=== PATIENT | male | born 1970 | race African-American/Black ===

== ENCOUNTER 2016-09-27 08:51 | Emergency (ER) | payer MEDICAID ==
[~2016-09-27] VITALS: Ht 165.1 cm; Wt 75.0 kg
[~2016-09-27 08:51] MED LIST: AMLO5TAB4 PO; HYDROCHLOROTHIAZIDE; LISI-167 PO
[2016-09-27] MEDS ORDERED: SODIUM CHLORIDE FLUSH 10ML SYR IVF ONE (09:30)
[2016-09-27 10:28] LABS: BLOOD UREA NITROGEN 16 mg/dL (7-18)
[2016-09-27] MEDS ORDERED: MORPHINE SULFATE 4 MG/ML, 1ML IVPush ONE (10:30)
[2016-09-27] MEDS ORDERED: DIAZEPAM 5 MG/ML, 2ML IV ONE (10:30)
[2016-09-27] MEDS ORDERED: DIAZEPAM 5 MG/ML, 2ML ONE ×2 (10:34→11:21)
[2016-09-27] MEDS ORDERED: MORPHINE SULFATE 4 MG/ML, 1ML ONE (10:35)
[2016-09-27 10:55] LABS: PATH.CAST-FLAG NOT PRESENT; SPERM-FLAG NOT PRESENT; SRC-FLAG NOT PRESENT; XTAL-FLAG NOT PRESENT; YLC-FLAG NOT PRESENT
[2016-09-27] MEDS ORDERED: HYDR12.53 PO (10:55)
[2016-09-27 11:26] VITALS: BP 185/123
== END 2016-09-27 12:38 | disposition home or self-care (01) ==
LOC: ED 10:32
DX: S06.0X9A Concussion with loss of consciousness of unspecified duration, initial encounter (principal); S16.1XXA Strain of muscle, fascia and tendon at neck level, initial encounter; S39.012A Strain of muscle, fascia and tendon of lower back, initial encounter; I25.2 Old myocardial infarction; I10 Essential (primary) hypertension; R79.89 Other specified abnormal findings of blood chemistry; W01.0XXA Fall on same level from slipping, tripping and stumbling without subsequent striking against object, initial encounter; Y93.89 Activity, other specified; Y92.89 Other specified places as the place of occurrence of the external cause; Y99.8 Other external cause status
CPT/HCPCS: 36415; 70450; 72072; 72110; 72125; 80048; 81001; 82040; 85025; 93005; 96374; 96375; 99285; J3360

== ENCOUNTER 2016-12-02 13:44 | Emergency (ER) | payer MEDICAID ==
[~2016-12-02] VITALS: Ht 165.1 cm; Wt 74.7 kg
[~2016-12-02 13:44] MED LIST changes: +HYDR12.53 PO
[2016-12-02 13:45] VITALS: BP 196/159
[2016-12-02] MEDS ORDERED: PROPARACAINE OPHTH 0.5%, 15ML EACHEYE STA (13:59)
[2016-12-02] MEDS ORDERED: FLUORESCEIN OPHTHALMIC 1 MG STRIP ONE (14:02)
[2016-12-02] MEDS ORDERED: PROPARACAINE OPHTH 0.5%, 15ML ONE (14:02)
== END 2016-12-02 14:38 | disposition home or self-care (01) ==
LOC: ED 14:01
DX: S00.83XA Contusion of other part of head, initial encounter (principal); I10 Essential (primary) hypertension; W22.09XA Striking against other stationary object, initial encounter; Y93.H2 Activity, gardening and landscaping; Y92.89 Other specified places as the place of occurrence of the external cause; Y99.8 Other external cause status
CPT/HCPCS: 99283

== ENCOUNTER 2017-01-16 19:35 | Inpatient (IN) | payer MEDICAID ==
[~2017-01-16] VITALS: Ht 165.1 cm; Wt 73.4 kg
[2017-01-16] MEDS ORDERED: NITROGLYCERIN SINGLE TAB 0.4 MG SL PRN (20:00)
[2017-01-16] MEDS ORDERED: SODIUM CHLORIDE FLUSH 10ML SYR IVF ONE ×2 (20:00→20:30)
[2017-01-16] MEDS ORDERED: ASPIRIN 81 MG TABLET CHEW PO ONE (20:00)
[2017-01-16] MEDS ORDERED: NITROGLYCERIN SINGLE TAB 0.4 MG SL ONE (20:24)
[2017-01-16] MEDS ORDERED: ENALAPRILAT 1.25 MG/ML, 2ML ONE (20:24)
[2017-01-16] MEDS ORDERED: NITROGLYCERIN OINT 2%, 1GM TP ONE ×2 (20:24→20:30)
[2017-01-16] MEDS ORDERED: ASPIRIN 81 MG TABLET CHEW ONE ×2 (20:24→21:22)
[2017-01-16] MEDS ORDERED: LABETALOL 5MG/ML, 20ML ONE (20:25)
[2017-01-16] MEDS ORDERED: LABETALOL 5MG/ML, 20ML IVPush ONE (20:30)
[2017-01-16] MEDS ORDERED: ENALAPRILAT 1.25 MG/ML, 2ML IV ONE (20:30)
[2017-01-16 20:40] LABS: ASPARTATE AMINO TRANSFERASE 16 U/L (15-37); BLOOD UREA NITROGEN 21 mg/dL (7-18)
[2017-01-16 20:41] LABS: HEMATOCRIT 51.5 % (39.2-51.8); HEMOGLOBIN 17.2 g/dL (13.7-18.0); WHITE BLOOD COUNT 7.7 x10^3/uL (3.4-10)
[2017-01-16 20:45] LABS: IS PT STATUS REG ER OR PRE ER? YES
[2017-01-16] MEDS ORDERED: ASPIRIN 325 MG TABLET PO ONE (21:30)
[2017-01-16] MEDS ORDERED: AMLO10TA2 PO (21:54)
[2017-01-16] MEDS ORDERED: LORazepam 2 MG/ML, 1ML ONE (22:47)
[2017-01-16] MEDS ORDERED: LORazepam 2 MG/ML, 1ML IVPush ONE (23:00)
[2017-01-16] MEDS ORDERED: ACETAMINOPHEN 325 MG TABLET PO PRN (23:30)
[2017-01-16] MEDS ORDERED: TRAZODONE 50MG TABLET PO PRN (23:30)
[2017-01-16] MEDS ORDERED: DOCUSATE 100 MG CAPSULE PO PRN (23:30)
[2017-01-16] MEDS ORDERED: LABETALOL 5MG/ML, 20ML IVPush PRN (23:30)
[2017-01-16] MEDS ORDERED: ONDANSETRON ODT 4 MG PO PRN (23:30)
[2017-01-16] MEDS: LABETALOL 200 MG TABLET PO SCH (23:48)
[2017-01-16] MEDS: AMLODIPINE 5 MG TABLET PO SCH (23:49)
[2017-01-16] MEDS ORDERED: NICOTINE 21 MG/24 HR PATCH.TD24 ONE (23:53)
[2017-01-16] MEDS: NICOTINE 21 MG/24 HR PATCH.TD24 TD SCH (23:55)
[2017-01-17 00:12] LABS: IS PT STATUS REG ER OR PRE ER? YES
[2017-01-17 05:10] LABS: HEMATOCRIT 45.9 % (39.2-51.8); HEMOGLOBIN 15.5 g/dL (13.7-18.0); WHITE BLOOD COUNT 7.2 x10^3/uL (3.4-10)
[2017-01-17 05:21] LABS: IS PT STATUS REG ER OR PRE ER? YES
[2017-01-17] MEDS: LABETALOL 200 MG TABLET PO SCH (06:00)
[2017-01-17 06:23] LABS: ASPARTATE AMINO TRANSFERASE 21 U/L (15-37); BLOOD UREA NITROGEN 27 mg/dL (7-18)
[2017-01-17] MEDS ORDERED: ONDANSETRON ODT 4 MG ONE (07:06)
[2017-01-17] MEDS ORDERED: PANTOPROZOLE 40MG TABLET PO SCH (07:30)
[2017-01-17 09:23] VITALS: BP 126/81
[2017-01-17] MEDS: HEPARIN 5,000 UNITS/ML, 1ML SQ SCH ×2 (10:48→16:54)
[2017-01-17] MEDS: AMLODIPINE 5 MG TABLET PO SCH ×2 (10:48→23:37)
[2017-01-17] MEDS: SODIUM CHLORIDE 0.9% 1,000 ML IV SCH ×2 (10:48→16:53)
[2017-01-17] MEDS ORDERED: NITROGLYCERIN 0.4 MG/SPRAY SL PRN (11:00)
[2017-01-17] MEDS ORDERED: NITROGLYCERIN 0.4 MG BOTTLE (25 TABS) SL PRN (11:00)
[2017-01-17] MEDS ORDERED: PHARMACY MAY ADJ FOR RENAL FX MC PRN (11:00)
[2017-01-17] MEDS: THIAMINE 100MG TABLET PO SCH (12:03)
[2017-01-17] MEDS: OMEGA-3/FISH OIL CAPSULE PO SCH (12:03)
[2017-01-17] MEDS: LABETALOL 100 MG TABLET PO SCH ×2 (14:36→23:37)
[2017-01-17] MEDS ORDERED: POTASSIUM CHLORIDE 20 MEQ TAB.ER.PRT PO SCH (17:00)
[2017-01-17 19:05] VITALS: BP 141/88
[2017-01-17 19:15] LABS: DAU SCREEN DISCLAIMER
[2017-01-17] MEDS: NICOTINE 21 MG/24 HR PATCH.TD24 TD SCH (23:30)
[2017-01-17 23:35] VITALS: BP 136/92
[2017-01-17] MEDS: ATORVASTATIN 40 MG TABLET PO SCH (23:37)
[2017-01-18 02:00] VITALS: BP 144/88
[2017-01-18] MEDS: HEPARIN 5,000 UNITS/ML, 1ML SQ SCH ×4 (02:18→21:25)
[2017-01-18] MEDS: SODIUM CHLORIDE 0.9% 1,000 ML IV SCH ×2 (02:18→09:30)
[2017-01-18 05:30] LABS: BLOOD UREA NITROGEN 21 mg/dL (7-18)
[2017-01-18 06:12] VITALS: BP 145/96
[2017-01-18] MEDS: LABETALOL 100 MG TABLET PO SCH ×3 (06:15→20:26)
[2017-01-18 09:26] VITALS: BP 151/105
[2017-01-18] MEDS: AMLODIPINE 5 MG TABLET PO SCH ×2 (09:29→20:26)
[2017-01-18] MEDS: THIAMINE 100MG TABLET PO SCH (09:29)
[2017-01-18 09:30] VITALS: BP 151/105
[2017-01-18] MEDS: OMEGA-3/FISH OIL CAPSULE PO SCH (09:30)
[2017-01-18] MEDS: FOLIC ACID 1 MG TABLET PO SCH (09:30)
[2017-01-18] MEDS ORDERED: REGADENOSON 0.4 MG/5 ML SYRINGE ONE (11:18)
[2017-01-18] MEDS ORDERED: DIPHENHYDRAMINE 25 MG CAPSULE PO PRN (12:00)
[2017-01-18] MEDS ORDERED: HYDROcodone/APAP 5/325 TABLET PO PRN (12:00)
[2017-01-18 13:37] VITALS: BP 159/96
[2017-01-18] MEDS: ATORVASTATIN 40 MG TABLET PO SCH (20:25)
[2017-01-18] MEDS: NICOTINE 21 MG/24 HR PATCH.TD24 TD SCH (20:26)
[2017-01-18] MEDS: CALCIUM CARBONATE 500 MG TAB.CHEW PO SCH (20:26)
[2017-01-18 20:34] VITALS: BP 172/111
[2017-01-19] VITALS (8 sets, daily range): BP systolic 140–178; BP diastolic 90–119
[2017-01-19] MEDS: LABETALOL 100 MG TABLET PO SCH ×2 (05:48→14:13)
[2017-01-19 05:57] LABS: BLOOD UREA NITROGEN 17 mg/dL (7-18)
[2017-01-19] MEDS: SODIUM CHLORIDE 0.9% 1,000 ML IV SCH (09:05)
[2017-01-19] MEDS: CALCIUM CARBONATE 500 MG TAB.CHEW PO SCH (09:05)
[2017-01-19] MEDS: OMEGA-3/FISH OIL CAPSULE PO SCH (09:05)
[2017-01-19] MEDS: FOLIC ACID 1 MG TABLET PO SCH (09:05)
[2017-01-19] MEDS: THIAMINE 100MG TABLET PO SCH (09:05)
[2017-01-19] MEDS: AMLODIPINE 5 MG TABLET PO SCH (09:05)
[2017-01-19] MEDS: HEPARIN 5,000 UNITS/ML, 1ML SQ SCH (09:06)
[2017-01-19] MEDS ORDERED: AMLO5TAB2 PO (14:16)
[2017-01-19] MEDS ORDERED: ASPI-515 PO (14:16)
[2017-01-19] MEDS ORDERED: LISI-167 PO (14:16)
[2017-01-19] MEDS ORDERED: ATOR40TA78 PO (14:16)
[2017-01-19] MEDS ORDERED: FOLI-17 PO (14:16)
[2017-01-19] MEDS ORDERED: NICO1PAT16 TD (14:16)
[2017-01-19] MEDS ORDERED: LABE100T3 PO (14:16)
[2017-01-19] MEDS ORDERED: OMEG1CAP6 PO (14:16)
[2017-01-19] MEDS ORDERED: THIA100T6 PO (14:16)
[2017-01-20] MEDS ORDERED: LISINOPRIL 10 MG TABLET PO SCH (09:00)
== END 2017-01-19 17:30 | disposition home or self-care (01) | DRG 280 ==
LOC: ED 21:23 → EDIP 22:06 → 5SO 01-17 09:09
PROVIDERS: ADMIT Internal Medicine; ATTEND Internal Medicine
DX: I21.3 ST elevation (STEMI) myocardial infarction of unspecified site (principal); N17.0 Acute kidney failure with tubular necrosis; E44.1 Mild protein-calorie malnutrition; I16.1 Hypertensive emergency; I24.8 Other forms of acute ischemic heart disease; E83.51 Hypocalcemia; E78.1 Pure hyperglyceridemia; Z68.26 Body mass index [BMI] 26.0-26.9, adult; E87.6 Hypokalemia; F17.200 Nicotine dependence, unspecified, uncomplicated; I25.10 Atherosclerotic heart disease of native coronary artery without angina pectoris; I51.7 Cardiomegaly; N18.9 Chronic kidney disease, unspecified; Z79.82 Long term (current) use of aspirin; Z86.73 Personal history of transient ischemic attack (TIA), and cerebral infarction without residual deficits; Z91.19 Patient's noncompliance with other medical treatment and regimen; I12.9 Hypertensive chronic kidney disease with stage 1 through stage 4 chronic kidney disease, or unspecified chronic kidney disease
CPT/HCPCS: 36415; 70450; 70551; 71010; 76770; 78452; 80048; 80053; 80061; 80307; 82040; 83735; 83880; 84100; 84443; 84484; 85025; 93005; 93017; 93306; 96374; 96375; J1644; J2785; Q0162; A9502; C9898; G0479; J2060; J7030; J7050

== ENCOUNTER 2017-04-11 02:18 | Emergency (ER) | payer MEDICAID ==
[~2017-04-11] VITALS: Ht 165.1 cm; Wt 76.9 kg
[~2017-04-11 02:18] MED LIST changes: +AMLO10TA2 PO; +AMLO5TAB2 PO; +ASPI-515 PO; +ATOR40TA78 PO; +FOLI-17 PO; +LABE100T3 PO; +NICO-487 TD; +OMEG1CAP6 PO; +THIA100T6 PO
[2017-04-11] MEDS ORDERED: OXYcodone/APAP 5/325MG TABLET PO ONE (03:00)
[2017-04-11] MEDS ORDERED: OXYcodone/APAP 5/325MG TABLET ONE (03:15)
[2017-04-11 05:10] VITALS: BP 158/99
== END 2017-04-11 05:47 | disposition home or self-care (01) ==
LOC: ED 02:59
DX: M13.10 Monoarthritis, not elsewhere classified, unspecified site (principal); F15.10 Other stimulant abuse, uncomplicated; I10 Essential (primary) hypertension; I25.2 Old myocardial infarction
CPT/HCPCS: 93005; 99284

== ENCOUNTER 2017-04-19 13:14 | Emergency (ER) | payer MEDICAID ==
[~2017-04-19] VITALS: Ht 165.1 cm; Wt 78.7 kg
[2017-04-19] MEDS ORDERED: LIDOCAINE 1%, 20ML ONE (14:10)
[2017-04-19 14:19] VITALS: BP 191/134
[2017-04-19] MEDS ORDERED: LIDOCAINE 1%, 10ML INFIL ONE (14:30)
== END 2017-04-19 15:25 | disposition home or self-care (01) ==
LOC: ED 15:19
DX: L02.01 Cutaneous abscess of face (principal); I10 Essential (primary) hypertension; Z76.0 Encounter for issue of repeat prescription; M19.90 Unspecified osteoarthritis, unspecified site
CPT/HCPCS: 10060; 99283

== ENCOUNTER 2017-04-23 20:46 | Emergency (ER) | payer MEDICAID ==
[2017-04-23] MEDS ORDERED: HYDR25TA6 PO (23:09)
[2017-04-23] MEDS ORDERED: ASPIRIN 81 MG TABLET CHEW ONE (23:41)
[2017-04-24] MEDS ORDERED: NITROGLYCERIN SINGLE TAB 0.4 MG SL PRN
[2017-04-24] MEDS ORDERED: ASPIRIN 81 MG TABLET CHEW PO ONE
[2017-04-24 00:09] LABS: BASOPHILS # (AUTO) 0.02 x10^3/uL (0-0.1); BASOPHILS % (AUTO) 0 % (0-1); EOSINOPHILS # (AUTO) 0.16 x10^3/uL (0-0.4); EOSINOPHILS % (AUTO) 3 % (1-7); LYMPHOCYTES # (AUTO) 1.49 x10^3/uL (1-3.4); LYMPHOCYTES % (AUTO) 23 % (22-44); MD NO; MEAN CORPUSCULAR HEMOGLOBIN 30.6 pg (27.5-34.5); MEAN CORPUSCULAR HGB CONC 34.2 g/dL (33.2-36.2); MEAN CORPUSCULAR VOLUME 89.3 fL (81-97); MEAN PLATELET VOLUME 8.8 fL (7.4-10.4); MONOCYTES # (AUTO) 0.65 x10^3/uL (0.2-0.8); MONOCYTES % (AUTO) 10 % (2-9); NEUTROPHILS # (AUTO) 4.11 x10^3/uL (1.8-6.8); NEUTROPHILS % (AUTO) 64 % (42-75); PLATELET COUNT 312 x10^3/uL (130-400); RED BLOOD COUNT 4.79 x10^6/uL (4.38-5.82)
[2017-04-24 00:20] LABS: ALBUMIN 3.4 g/dL (3.4-5.0); ANION GAP 7 mmol/L (5-15); CALCIUM 8.5 mg/dL (8.5-10.1); CHLORIDE 108 mmol/L (98-107); CREATININE 1.97 mg/dL (0.7-1.3)
[2017-04-24 00:24] LABS: TROPONIN I 0.016 ng/mL (0.000-0.045)
[2017-04-24 03:29] LABS: TROPONIN I < 0.015 ng/mL (0.000-0.045)
[2017-04-24 03:47] VITALS: BP 137/90
== END 2017-04-24 04:30 | disposition home or self-care (01) ==
LOC: ED 23:59
DX: R07.89 Other chest pain (principal); N28.9 Disorder of kidney and ureter, unspecified; I10 Essential (primary) hypertension; I25.2 Old myocardial infarction
CPT/HCPCS: 36415; 71010; 80048; 82040; 84484; 85025; 93005; 99285

== ENCOUNTER 2017-05-10 17:39 | Observation (INO) | payer MEDICAID ==
[~2017-05-10] VITALS: Ht 175.3 cm; Wt 72.8 kg
[~2017-05-10 17:39] MED LIST changes: +HYDR25TA6 PO
[2017-05-10] MEDS ORDERED: ZIPRASIDONE 20 MG INJ IM ONE (18:00)
[2017-05-10] MEDS ORDERED: PLEASE ENTER HEIGHT AND WEIGHT MC SCH (18:00)
[2017-05-10 20:14] LABS: ACETAMINOPHEN < 2 mcg/mL (10-30); ALBUMIN 3.5 g/dL (3.4-5.0); ANION GAP 10 mmol/L (5-15); CALCIUM 8.4 mg/dL (8.5-10.1); CHLORIDE 109 mmol/L (98-107); CREATININE 1.85 mg/dL (0.7-1.3); SALICYLATE LEVEL 4.1 mg/dL (2.8-20.0)
[2017-05-10 20:29] LABS: BASOPHILS # (AUTO) 0.01 x10^3/uL (0-0.1); BASOPHILS % (AUTO) 0 % (0-1); EOSINOPHILS # (AUTO) 0.06 x10^3/uL (0-0.4); EOSINOPHILS % (AUTO) 1 % (1-7); LYMPHOCYTES # (AUTO) 1.32 x10^3/uL (1-3.4); LYMPHOCYTES % (AUTO) 24 % (22-44); MD NO; MEAN CORPUSCULAR HEMOGLOBIN 30.1 pg (27.5-34.5); MEAN CORPUSCULAR HGB CONC 33.6 g/dL (33.2-36.2); MEAN CORPUSCULAR VOLUME 89.5 fL (81-97); MEAN PLATELET VOLUME 9.5 fL (7.4-10.4); MONOCYTES # (AUTO) 0.61 x10^3/uL (0.2-0.8); MONOCYTES % (AUTO) 11 % (2-9); NEUTROPHILS # (AUTO) 3.48 x10^3/uL (1.8-6.8); NEUTROPHILS % (AUTO) 64 % (42-75); PLATELET COUNT 267 x10^3/uL (130-400); RED BLOOD COUNT 4.97 x10^6/uL (4.38-5.82); RED CELL DISTRIBUTION WIDTH 13.9 % (9.4-14.8)
[2017-05-10] MEDS ORDERED: HALOPERIDOL 5 MG TABLET PO PRN (23:30)
[2017-05-10] MEDS ORDERED: ACETAMINOPHEN 325 MG TABLET PO PRN (23:30)
[2017-05-10] MEDS ORDERED: ONDANSETRON 2MG/ML, 2ML IVPush PRN (23:30)
[2017-05-11] VITALS (7 sets, daily range): BP systolic 85–186; BP diastolic 48–127
[2017-05-11 11:05] LABS: AMPHETAMINE SCREEN, URINE Positive (Negative); BARBITURATE SCREEN, URINE Negative (Negative); BENZODIAZEPINE SCREEN, URINE Negative (Negative); CANNABINOID SCREEN, URINE Negative (Negative); COCAINE SCREEN, URINE Negative (Negative); METHADONE SCREEN, URINE Negative (Negative); OPIATE SCREEN, URINE Negative (Negative)
[2017-05-11] MEDS: OMEGA-3/FISH OIL CAPSULE PO SCH (14:32)
[2017-05-11] MEDS: LISINOPRIL 10 MG TABLET PO SCH (14:32)
[2017-05-11] MEDS: AMLODIPINE 5 MG TABLET PO SCH ×2 (14:33→20:38)
[2017-05-11] MEDS: LABETALOL 100 MG TABLET PO SCH ×3 (14:33→22:25)
[2017-05-11] MEDS: ASPIRIN 81 MG TABLET EC PO SCH (14:33)
[2017-05-11] MEDS: THIAMINE 100MG TABLET PO SCH (14:34)
[2017-05-11] MEDS: HYDROCHLOROTHIAZIDE 25 MG TABLET PO SCH (14:34)
[2017-05-11] MEDS: FOLIC ACID 1 MG TABLET PO SCH (14:34)
[2017-05-11] MEDS ORDERED: ATORVASTATIN 40 MG TABLET PO SCH (21:00)
[2017-05-12 05:30] VITALS: BP 165/109
[2017-05-12] MEDS: LABETALOL 100 MG TABLET PO SCH (05:40)
[2017-05-12 07:54] VITALS: BP 137/85
[2017-05-12] MEDS: AMLODIPINE 5 MG TABLET PO SCH (08:53)
[2017-05-12] MEDS: FOLIC ACID 1 MG TABLET PO SCH (08:53)
[2017-05-12] MEDS: THIAMINE 100MG TABLET PO SCH (08:53)
[2017-05-12] MEDS: OMEGA-3/FISH OIL CAPSULE PO SCH (08:54)
[2017-05-12] MEDS: HYDROCHLOROTHIAZIDE 25 MG TABLET PO SCH (08:54)
[2017-05-12] MEDS: ASPIRIN 81 MG TABLET EC PO SCH (08:54)
[2017-05-12] MEDS: LISINOPRIL 10 MG TABLET PO SCH (08:59)
== END 2017-05-12 12:05 ==
LOC: ED 18:24 → INTOOBSV 23:16 → EDIP 23:16 → 2N 05-11 14:42
PROVIDERS: ADMIT Internal Medicine; ATTEND Internal Medicine
DX: T14.91XA Suicide attempt, initial encounter (principal); F15.90 Other stimulant use, unspecified, uncomplicated; F12.90 Cannabis use, unspecified, uncomplicated; I25.10 Atherosclerotic heart disease of native coronary artery without angina pectoris; I25.2 Old myocardial infarction; I10 Essential (primary) hypertension; E11.9 Type 2 diabetes mellitus without complications; N19 Unspecified kidney failure; M19.90 Unspecified osteoarthritis, unspecified site; F17.210 Nicotine dependence, cigarettes, uncomplicated; F23 Brief psychotic disorder; Z98.890 Other specified postprocedural states
CPT/HCPCS: 36415; 80048; 80307; 80329; 82040; 85025; 96372; 99285; G0378; J3486; G0480

== ENCOUNTER 2017-06-03 19:28 | Inpatient (IN) | payer MEDICAID ==
[~2017-06-03] VITALS: Ht 165.1 cm; Wt 77.7 kg
[2017-06-03] MEDS ORDERED: SODIUM CHLORIDE FLUSH 10ML SYR IVF ONE (20:00)
[2017-06-03] MEDS ORDERED: HYDROmorphone 1 MG/ML, 1ML IVPush PRN (20:00)
[2017-06-03] MEDS ORDERED: ONDANSETRON 2MG/ML, 2ML IVPush ONE (20:00)
[2017-06-03] MEDS ORDERED: ONDANSETRON 2MG/ML, 2ML ONE (20:03)
[2017-06-03] MEDS ORDERED: HYDROmorphone 1 MG/ML, 1ML ONE ×2 (20:03→20:10)
[2017-06-03 21:29] LABS: BASOPHILS # (AUTO) 0.02 x10^3/uL (0-0.1); BASOPHILS % (AUTO) 0 % (0-1); EOSINOPHILS # (AUTO) 0.17 x10^3/uL (0-0.4); EOSINOPHILS % (AUTO) 2 % (1-7); LYMPHOCYTES # (AUTO) 0.96 x10^3/uL (1-3.4); LYMPHOCYTES % (AUTO) 13 % (22-44); MD NO; MEAN CORPUSCULAR HEMOGLOBIN 30.1 pg (27.5-34.5); MEAN CORPUSCULAR HGB CONC 33.5 g/dL (33.2-36.2); MEAN PLATELET VOLUME 8.2 fL (7.4-10.4); MONOCYTES # (AUTO) 0.59 x10^3/uL (0.2-0.8); MONOCYTES % (AUTO) 8 % (2-9); NEUTROPHILS # (AUTO) 5.54 x10^3/uL (1.8-6.8); NEUTROPHILS % (AUTO) 76 % (42-75); PLATELET COUNT 331 x10^3/uL (130-400); RED BLOOD COUNT 5.11 x10^6/uL (4.38-5.82); RED CELL DISTRIBUTION WIDTH 14.1 % (9.4-14.8)
[2017-06-03 21:41] LABS: ALANINE AMINOTRANSFERASE 39 U/L (12-78); ALBUMIN 3.4 g/dL (3.4-5.0); ANION GAP 12 mmol/L (5-15); CHLORIDE 108 mmol/L (98-107); CREATININE 1.73 mg/dL (0.7-1.3)
[2017-06-03 21:43] LABS: ALKALINE PHOSPHATASE 80 U/L (45-117); BILIRUBIN,TOTAL 0.3 mg/dL (0.2-1.0)
[2017-06-03] MEDS: SODIUM CHLORIDE FLUSH 10ML SYR IVF SCH (23:00)
[2017-06-03] MEDS ORDERED: hydrALAzine 20 MG/ML, 1ML IVPush PRN (23:00)
[2017-06-03] MEDS ORDERED: BISACODYL 10 MG SUPP PR PRN (23:00)
[2017-06-03] MEDS ORDERED: ONDANSETRON 2MG/ML, 2ML IVPush PRN (23:00)
[2017-06-03] MEDS ORDERED: POLYETHYLENE GLYCOL 17 GM PACKET PO PRN (23:00)
[2017-06-03] MEDS ORDERED: SODIUM CHLORIDE FLUSH 10ML SYR IVF PRN (23:00)
[2017-06-03] MEDS: ATORVASTATIN 40 MG TABLET PO SCH (23:00)
[2017-06-03] MEDS: NICOTINE 21 MG/24 HR PATCH.TD24 TD SCH (23:00)
[2017-06-03] MEDS ORDERED: ACETAMINOPHEN 325 MG TABLET PO PRN (23:00)
[2017-06-03] MEDS: AMLODIPINE 5 MG TABLET PO SCH (23:58)
[2017-06-03] MEDS: LABETALOL 100 MG TABLET PO SCH (23:59)
[2017-06-04] VITALS (9 sets, daily range): BP systolic 105–170; BP diastolic 65–116
[2017-06-04] MEDS ORDERED: HYDROmorphone 2 MG/ML, 1ML ONE (00:10)
[2017-06-04] MEDS: OXYcodone IR 5MG TABLET PO PRN ×6 (00:19→23:15)
[2017-06-04 05:09] LABS: BASOPHILS # (AUTO) 0.01 x10^3/uL (0-0.1); BASOPHILS % (AUTO) 0 % (0-1); EOSINOPHILS # (AUTO) 0.11 x10^3/uL (0-0.4); EOSINOPHILS % (AUTO) 2 % (1-7); LYMPHOCYTES # (AUTO) 0.54 x10^3/uL (1-3.4); LYMPHOCYTES % (AUTO) 9 % (22-44); MD NO; MEAN CORPUSCULAR HEMOGLOBIN 30.2 pg (27.5-34.5); MEAN CORPUSCULAR HGB CONC 33.7 g/dL (33.2-36.2); MEAN CORPUSCULAR VOLUME 89.7 fL (81-97); MEAN PLATELET VOLUME 8.7 fL (7.4-10.4); MONOCYTES # (AUTO) 0.73 x10^3/uL (0.2-0.8); MONOCYTES % (AUTO) 12 % (2-9); NEUTROPHILS # (AUTO) 4.78 x10^3/uL (1.8-6.8); NEUTROPHILS % (AUTO) 78 % (42-75); PLATELET COUNT 321 x10^3/uL (130-400); RED BLOOD COUNT 4.63 x10^6/uL (4.38-5.82); RED CELL DISTRIBUTION WIDTH 13.9 % (9.4-14.8)
[2017-06-04 05:19] LABS: CHLORIDE 107 mmol/L (98-107)
[2017-06-04 05:39] LABS: ALANINE AMINOTRANSFERASE 34 U/L (12-78); ALBUMIN 3.1 g/dL (3.4-5.0); ALKALINE PHOSPHATASE 74 U/L (45-117); ANION GAP 9 mmol/L (5-15); BILIRUBIN,TOTAL 0.8 mg/dL (0.2-1.0); CALCIUM 8.2 mg/dL (8.5-10.1); CREATININE 1.79 mg/dL (0.7-1.3); TOTAL PROTEIN 6.9 g/dL (6.4-8.2)
[2017-06-04] MEDS: LABETALOL 100 MG TABLET PO SCH ×3 (06:38→23:18)
[2017-06-04] MEDS: SENNA/DOCUSATE TABLET PO SCH (09:15)
[2017-06-04] MEDS: HYDROCHLOROTHIAZIDE 25 MG TABLET PO SCH (09:15)
[2017-06-04] MEDS: THIAMINE 100MG TABLET PO SCH (09:16)
[2017-06-04] MEDS: SODIUM CHLORIDE FLUSH 10ML SYR IVF SCH ×2 (09:16→21:00)
[2017-06-04] MEDS: LISINOPRIL 10 MG TABLET PO SCH (09:16)
[2017-06-04] MEDS: AMLODIPINE 5 MG TABLET PO SCH ×2 (09:16→22:18)
[2017-06-04] MEDS: FOLIC ACID 1 MG TABLET PO SCH (09:16)
[2017-06-04] MEDS: ASPIRIN 81 MG TABLET EC PO SCH (09:16)
[2017-06-04] MEDS: OMEGA-3/FISH OIL CAPSULE PO SCH (09:16)
[2017-06-04] MEDS ORDERED: PHARMACY MAY ADJ FOR RENAL FX MC PRN (09:30)
[2017-06-04] MEDS: AMPICILLIN/SULBACTAM 3 GM in SODIUM CHLORIDE 0.9% 100 ML IV SCH ×3 (10:12→21:12)
[2017-06-04] MEDS: HEPARIN 5,000 UNITS/ML, 1ML SQ SCH ×2 (10:12→17:13)
[2017-06-04] MEDS: ATORVASTATIN 40 MG TABLET PO SCH (21:00)
[2017-06-04] MEDS: NICOTINE 21 MG/24 HR PATCH.TD24 TD SCH (23:15)
[2017-06-05] MEDS: HEPARIN 5,000 UNITS/ML, 1ML SQ SCH ×2 (02:04→08:38)
[2017-06-05 03:11] VITALS: BP 109/64
[2017-06-05] MEDS: OXYcodone IR 5MG TABLET PO PRN (03:43)
[2017-06-05] MEDS: AMPICILLIN/SULBACTAM 3 GM in SODIUM CHLORIDE 0.9% 100 ML IV SCH ×3 (03:43→15:30)
[2017-06-05 05:12] LABS: BASOPHILS # (AUTO) 0.02 x10^3/uL (0-0.1); BASOPHILS % (AUTO) 0 % (0-1); EOSINOPHILS % (AUTO) 5 % (1-7); LYMPHOCYTES # (AUTO) 1.24 x10^3/uL (1-3.4); LYMPHOCYTES % (AUTO) 22 % (22-44); MD NO; MEAN CORPUSCULAR HGB CONC 33.6 g/dL (33.2-36.2); MEAN CORPUSCULAR VOLUME 89.3 fL (81-97); MEAN PLATELET VOLUME 8.8 fL (7.4-10.4); MONOCYTES # (AUTO) 0.69 x10^3/uL (0.2-0.8); MONOCYTES % (AUTO) 12 % (2-9); NEUTROPHILS # (AUTO) 3.42 x10^3/uL (1.8-6.8); NEUTROPHILS % (AUTO) 60 % (42-75); PLATELET COUNT 283 x10^3/uL (130-400); RED BLOOD COUNT 4.43 x10^6/uL (4.38-5.82); RED CELL DISTRIBUTION WIDTH 13.8 % (9.4-14.8)
[2017-06-05 05:22] LABS: ANION GAP 9 mmol/L (5-15); CALCIUM 7.8 mg/dL (8.5-10.1); CHLORIDE 108 mmol/L (98-107)
[2017-06-05 05:25] LABS: CREATININE 1.82 mg/dL (0.7-1.3)
[2017-06-05 06:08] VITALS: BP 126/82
[2017-06-05] MEDS: LABETALOL 100 MG TABLET PO SCH ×2 (06:10→14:15)
[2017-06-05] MEDS ORDERED: POTASSIUM CHLORIDE 20 MEQ PACKET PO SCH (08:00)
[2017-06-05] MEDS ORDERED: POTASSIUM CHLORIDE 20 MEQ TAB.ER.PRT ONE (08:31)
[2017-06-05] MEDS: OMEGA-3/FISH OIL CAPSULE PO SCH (08:38)
[2017-06-05] MEDS: AMLODIPINE 5 MG TABLET PO SCH (08:38)
[2017-06-05] MEDS: ASPIRIN 81 MG TABLET EC PO SCH (08:38)
[2017-06-05] MEDS: LISINOPRIL 10 MG TABLET PO SCH (08:38)
[2017-06-05] MEDS: SENNA/DOCUSATE TABLET PO SCH (08:38)
[2017-06-05] MEDS: HYDROCHLOROTHIAZIDE 25 MG TABLET PO SCH (08:38)
[2017-06-05] MEDS: FOLIC ACID 1 MG TABLET PO SCH (08:38)
[2017-06-05] MEDS: THIAMINE 100MG TABLET PO SCH (08:38)
[2017-06-05] MEDS: SODIUM CHLORIDE FLUSH 10ML SYR IVF SCH (08:39)
[2017-06-05 13:11] VITALS: BP 121/81
[2017-06-05] MEDS ORDERED: LISI-167 PO (13:35)
[2017-06-05] MEDS ORDERED: ASPI-515 PO (13:35)
[2017-06-05] MEDS ORDERED: HYDR25TA6 PO (13:35)
[2017-06-05] MEDS ORDERED: LABE100T3 PO (13:35)
[2017-06-05] MEDS ORDERED: AMLO5TAB2 PO (13:35)
[2017-06-05] MEDS ORDERED: ATOR40TA78 PO (13:35)
[2017-06-05 16:15] VITALS: BP 128/72
== END 2017-06-05 17:00 | disposition home or self-care (01) | DRG 125 ==
LOC: ED 19:38 → EDIP 22:46 → 4NOR 23:00 → DCLOUNGE 06-05 16:49
PROVIDERS: ADMIT Internal Medicine; ATTEND Internal Medicine
DX: S02.31XA Fracture of orbital floor, right side, initial encounter for closed fracture (principal); E11.22 Type 2 diabetes mellitus with diabetic chronic kidney disease; E44.0 Moderate protein-calorie malnutrition; H05.20 Unspecified exophthalmos; N18.3 Chronic kidney disease, stage 3 (moderate); S01.511A Laceration without foreign body of lip, initial encounter; Z66 Do not resuscitate; E78.5 Hyperlipidemia, unspecified; F17.210 Nicotine dependence, cigarettes, uncomplicated; I12.9 Hypertensive chronic kidney disease with stage 1 through stage 4 chronic kidney disease, or unspecified chronic kidney disease; I16.0 Hypertensive urgency; I25.10 Atherosclerotic heart disease of native coronary artery without angina pectoris; Y04.0XXA Assault by unarmed brawl or fight, initial encounter; Y93.89 Activity, other specified; Y92.89 Other specified places as the place of occurrence of the external cause; Y99.8 Other external cause status; Z68.28 Body mass index [BMI] 28.0-28.9, adult; I25.2 Old myocardial infarction; Z59.0 Homelessness; Z82.49 Family history of ischemic heart disease and other diseases of the circulatory system; Z86.73 Personal history of transient ischemic attack (TIA), and cerebral infarction without residual deficits; Z91.14 Patient's other noncompliance with medication regimen
CPT/HCPCS: 36415; 70450; 70486; 71250; 72125; 74176; 80048; 80053; 85025; 96374; 96375; J0295; J1170; J1644; J2405

== ENCOUNTER 2017-06-16 16:45 | Emergency (ER) | payer MEDICAID ==
[2017-06-16] MEDS ORDERED: LABETALOL 5MG/ML, 20ML IVPush ONE ×2 (18:00→19:00)
[2017-06-16] MEDS ORDERED: LABETALOL 5MG/ML, 20ML ONE (18:00)
[2017-06-16 18:15] LABS: BASOPHILS # (AUTO) 0.02 x10^3/uL (0-0.1); BASOPHILS % (AUTO) 1 % (0-1); EOSINOPHILS # (AUTO) 0.24 x10^3/uL (0-0.4); EOSINOPHILS % (AUTO) 5 % (1-7); LYMPHOCYTES # (AUTO) 1.08 x10^3/uL (1-3.4); LYMPHOCYTES % (AUTO) 23 % (22-44); MD NO; MEAN CORPUSCULAR HEMOGLOBIN 30.2 pg (27.5-34.5); MEAN CORPUSCULAR HGB CONC 33.6 g/dL (33.2-36.2); MEAN CORPUSCULAR VOLUME 89.9 fL (81-97); MEAN PLATELET VOLUME 8.7 fL (7.4-10.4); MONOCYTES # (AUTO) 0.34 x10^3/uL (0.2-0.8); MONOCYTES % (AUTO) 7 % (2-9); NEUTROPHILS # (AUTO) 3.01 x10^3/uL (1.8-6.8); NEUTROPHILS % (AUTO) 64 % (42-75); PLATELET COUNT 417 x10^3/uL (130-400); RED BLOOD COUNT 5.01 x10^6/uL (4.38-5.82); RED CELL DISTRIBUTION WIDTH 13.7 % (9.4-14.8)
[2017-06-16 18:19] LABS: INTERNATIONAL NORMALIZED RATIO 0.98 (0.93-1.1); PROTHROMBIN TIME 10.1 Seconds (9.6-11.5)
[2017-06-16 18:27] LABS: ALBUMIN 3.5 g/dL (3.4-5.0); ANION GAP 5 mmol/L (5-15); CALCIUM 8.9 mg/dL (8.5-10.1); CHLORIDE 107 mmol/L (98-107)
[2017-06-16 18:32] LABS: CREATININE 1.77 mg/dL (0.7-1.3); TROPONIN I < 0.015 ng/mL (0.000-0.045)
[2017-06-16 21:14] VITALS: BP 151/101
== END 2017-06-16 21:16 | disposition home or self-care (01) ==
LOC: ED 17:50
DX: I10 Essential (primary) hypertension (principal); E11.9 Type 2 diabetes mellitus without complications; I25.2 Old myocardial infarction; M19.90 Unspecified osteoarthritis, unspecified site
CPT/HCPCS: 36415; 70450; 71045; 80048; 82040; 84484; 85025; 85610; 93005; 96374; 96376